=== PATIENT | female | born 1960 | race Caucasian/White ===

== ENCOUNTER 2021-03-16 17:35 | Observation (INO) ==
[2021-03-16 18:33] LABS: Basophils # 0.1 K/mcL (0.0-0.2); Basophils % 0.5 %; Eosinophils # 0.2 K/mcL (0.0-0.6); Eosinophils % 1.4 %; Hematocrit 43.2 % (35.3-44.9); Hemoglobin 13.8 g/dL (11.5-15.4); Immature Granulocytes % 0.5 % (0-4); Lymphocytes # 3.4 K/mcL (0.6-4.6); Lymphocytes % 25.9 %; Mean Corpuscular HGB Conc 31.9 g/dL (31.6-35.5); Mean Corpuscular Hemoglobin 32.3 pg (28.0-33.3); Mean Corpuscular Volume 101.2 fL (83.0-100.0); Mean Platelet Volume 9.3 fL (9.4-12.4); Monocytes # 1.1 K/mcL (0.0-1.3); Neutrophils # 8.5 K/mcL (1.6-8.9); Platelet Count 327 K/mcL (140-400); Red Blood Count 4.27 M/mcL (3.82-4.97); Red Cell Distribution Width 13.6 % (11.5-14.5); Segmented Neutrophils % 63.7 %; White Blood Count 13.3 K/mcL (4.3-11.1)
[2021-03-16] MEDS ORDERED: Azithromycin 250 MG TABLET PO ONE (18:49)
[2021-03-16] MEDS ORDERED: predniSONE 20 MG TABLET PO ONE (18:49)
[2021-03-16 18:50] LABS: BUN/Creatinine Ratio 13 (6-26); Blood Urea Nitrogen 11 mg/dL (8-23); Calcium 9.5 mg/dL (8.6-10.3); Carbon Dioxide 26 mEq/L (23-29); Chloride 106 mEq/L (98-107); Glucose 97 mg/dL (70-105); Osmolality,Calculated 291 (280-300); Potassium 3.5 mEq/L (3.5-5.1); Sodium 141 mEq/L (136-145); eGFR For African Americans > 60 (> 60); eGFR For Non-African Americans > 60 (> 60)
[2021-03-16] MEDS ORDERED: Isovue-370 500 ML BOTTLE IVP ONE (18:50)
[2021-03-16 18:51] LABS: Troponin I < 0.03 ng/mL (< 0.04)
[2021-03-16] MEDS ORDERED: cefTRIAXone 1,000 MG in Water for inj. (sterile) 10 ML IVP ONE (20:03)
[2021-03-16 20:53] LABS: Adenovirus Not Detected (Not Detect); Bordetella Pertussis Not Detected (Not Detect); Chlamydophila pneumoniae Not Detected (Not Detect); Coronavirus 229E Not Detected (Not Detect); Coronavirus HKU1 Not Detected (Not Detect); Coronavirus NL63 Not Detected (Not Detect); Coronavirus OC43 Not Detected (Not Detect); Human Metapneumovirus Not Detected (Not Detect); Human Rhinovirus/Enterovirus Not Detected (Not Detect); Influenza A Subtype 2009 H1 Not Detected (Not Detect); Influenza B Not Detected (Not Detect); Mycoplasma pneumoniae Not Detected (Not Detect); Parainfluenza Virus 1 Not Detected (Not Detect); Parainfluenza Virus 2 Not Detected (Not Detect); Parainfluenza Virus 3 Not Detected (Not Detect); Parainfluenza Virus 4 Not Detected (Not Detect); Respiratory Syncytial Virus Not Detected (Not Detect); SARS-CoV-2 Not Detected (Not Detect)
[2021-03-16] MEDS ORDERED: Albuterol 2.5 MG/3 ML NEBULIZER IH PRN (23:05)
[2021-03-16] MEDS ORDERED: Naloxone 0.4 MG/ML INJ IVP PRN (23:06)
[2021-03-16] MEDS ORDERED: Ondansetron 4 MG/2 ML VIAL IVP PRN (23:06)
[2021-03-16] MEDS ORDERED: Acetaminophen 325 MG TABLET PO PRN (23:06)
[2021-03-16] MEDS ORDERED: Melatonin 3 MG TABLET PO PRN (23:06)
[2021-03-16] MEDS: Albuterol 2.5 MG/3 ML NEBULIZER IH SCH (23:30)
[2021-03-16] MEDS ORDERED: Fluticasone Propionate Nasal 50 MCG/SPRAY BOTTLE NS PRN (23:39)
[2021-03-16] MEDS: *HR* OxyCODONE/APAP 5/325 TABLET PO SCH (23:58)
[2021-03-16] MEDS: Gabapentin 300 MG CAPSULE PO SCH (23:58)
[2021-03-16] MEDS: carvediloL 25 MG TABLET PO SCH (23:59)
[2021-03-16] MEDS: traZODone 50 MG TABLET PO PRN (23:59)
[2021-03-17] MEDS: Albuterol 2.5 MG/3 ML NEBULIZER IH SCH ×6 (03:49→23:47)
[2021-03-17] MEDS: lisinopriL 10 MG TABLET PO SCH (07:48)
[2021-03-17] MEDS: Furosemide 20 MG TABLET PO SCH (07:48)
[2021-03-17] MEDS: predniSONE 20 MG TABLET PO SCH (07:48)
[2021-03-17] MEDS: carvediloL 25 MG TABLET PO SCH ×2 (07:48→19:42)
[2021-03-17] MEDS: Azithromycin 250 MG TABLET PO SCH (07:48)
[2021-03-17] MEDS: Gabapentin 300 MG CAPSULE PO SCH ×3 (07:49→19:43)
[2021-03-17] MEDS: *HR* OxyCODONE/APAP 5/325 TABLET PO SCH ×2 (07:49→19:42)
[2021-03-17] MEDS: Aspirin 81 MG TAB.CHEW PO SCH (07:49)
[2021-03-17] MEDS: Benzonatate 100 MG CAPSULE PO SCH ×3 (07:53→19:42)
[2021-03-17] MEDS: (Loxapine Succinate [Loxapine] 10 MG Capsule) PO SCH (07:53)
[2021-03-17] MEDS: cefTRIAXone 1,000 MG in Water for inj. (sterile) 10 ML IVP SCH (07:53)
[2021-03-17] MEDS: Isosorbide MONOnitrate (24 HR) 60 MG TAB.ER.24H PO SCH (07:53)
[2021-03-17] MEDS ORDERED: Nicotine 14 MG PATCH.TD24 TD PRN (17:08)
[2021-03-17] MEDS: traZODone 50 MG TABLET PO PRN (23:58)
[2021-03-18 02:04] LABS: Basophils # 0.1 K/mcL (0.0-0.2); Basophils % 0.5 %; Eosinophils % 0.2 %; Hematocrit 40.7 % (35.3-44.9); Hemoglobin 12.7 g/dL (11.5-15.4); Immature Granulocytes % 0.4 % (0-4); Lymphocytes # 4.4 K/mcL (0.6-4.6); Lymphocytes % 33.4 %; Mean Corpuscular HGB Conc 31.2 g/dL (31.6-35.5); Mean Corpuscular Hemoglobin 31.8 pg (28.0-33.3); Mean Platelet Volume 9.5 fL (9.4-12.4); Monocytes # 1.5 K/mcL (0.0-1.3); Monocytes % 11.4 %; Neutrophils # 7.1 K/mcL (1.6-8.9); Platelet Count 315 K/mcL (140-400); Red Blood Count 3.99 M/mcL (3.82-4.97); Red Cell Distribution Width 13.6 % (11.5-14.5); Segmented Neutrophils % 54.1 %
[2021-03-18 02:21] LABS: BUN/Creatinine Ratio 20 (6-26); Blood Urea Nitrogen 16 mg/dL (8-23); Calcium 9.1 mg/dL (8.6-10.3); Carbon Dioxide 28 mEq/L (23-29); Chloride 107 mEq/L (98-107); Glucose 102 mg/dL (70-105); Osmolality,Calculated 293 (280-300); Potassium 3.7 mEq/L (3.5-5.1); Sodium 141 mEq/L (136-145); eGFR For African Americans > 60 (> 60); eGFR For Non-African Americans > 60 (> 60)
[2021-03-18] MEDS: Albuterol 2.5 MG/3 ML NEBULIZER IH SCH ×4 (04:26→16:29)
[2021-03-18] MEDS: Azithromycin 250 MG TABLET PO SCH (08:29)
[2021-03-18] MEDS: Gabapentin 300 MG CAPSULE PO SCH ×2 (08:29→15:05)
[2021-03-18] MEDS: Isosorbide MONOnitrate (24 HR) 60 MG TAB.ER.24H PO SCH (08:29)
[2021-03-18] MEDS: Benzonatate 100 MG CAPSULE PO SCH ×2 (08:29→15:04)
[2021-03-18] MEDS: carvediloL 25 MG TABLET PO SCH (08:29)
[2021-03-18] MEDS: Furosemide 20 MG TABLET PO SCH (08:30)
[2021-03-18] MEDS: *HR* OxyCODONE/APAP 5/325 TABLET PO SCH (08:30)
[2021-03-18] MEDS: Aspirin 81 MG TAB.CHEW PO SCH (08:30)
[2021-03-18] MEDS: lisinopriL 10 MG TABLET PO SCH (08:30)
[2021-03-18] MEDS: predniSONE 20 MG TABLET PO SCH (08:31)
[2021-03-18] MEDS: cefTRIAXone 1,000 MG in Water for inj. (sterile) 10 ML IVP SCH (08:32)
[2021-03-18] MEDS: (Loxapine Succinate [Loxapine] 10 MG Capsule) PO SCH (08:51)
[2021-03-18] MEDS ORDERED: 0.9 % Sodium Chloride 1,000 ML IV ONE (10:43)
[2021-03-18 14:29] VITALS: BP 100/63
== END 2021-03-18 18:28 | disposition home or self-care (01) ==
LOC: CDU 17:35 → EMEROOARM 17:35 → CDU 22:47 → 3NENU 03-17 14:15
PROVIDERS: ADMIT Internal Medicine; ATTEND Internal Medicine